=== PATIENT | female | born 1995 | race Caucasian/White ===

== ENCOUNTER 2016-09-07 22:31 | Emergency (ER) | payer OTHER ==
[~2016-09-07] VITALS: Ht 188 cm; Wt 82.0 kg
[2016-09-07 22:35] VITALS: BP 128/74; PULSE 90; RESP 16; TEMP 98.2; O2SAT 98
[2016-09-08] MEDS ORDERED: birthcontrol (02:10)
[2016-09-08] MEDS ORDERED: MAXA10TA2 PO (02:10)
[2016-09-08] MEDS ORDERED: KETOROLAC TROMETHAMINE 60 MG/2 ML (IM) VIAL IM ONE (02:45)
[2016-09-08] MEDS ORDERED: ORPHENADRINE INJ 60 MG/2 ML AMP IM ONE (02:45)
[2016-09-08] MEDS ORDERED: ROBA500T PO (02:56)
[2016-09-08] MEDS ORDERED: IBUP800T23 PO (02:56)
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
== END 2016-09-08 03:15 | disposition home or self-care (01) ==
LOC: NEPB 22:31
DX: S16.1XXA Strain of muscle, fascia and tendon at neck level, initial encounter (principal); S50.10XA Contusion of unspecified forearm, initial encounter; V43.52XA Car driver injured in collision with other type car in traffic accident, initial encounter; Y99.8 Other external cause status
CPT/HCPCS: 96372; 99283; J1885; J2360